=== PATIENT | male | born 1995 | race Caucasian/White ===

== ENCOUNTER 2024-02-25 11:53 | Emergency (ER) | payer SELFPAY ==
[~2024-02-25] VITALS: Ht 175.3 cm; Wt 75.0 kg
[2024-02-25 12:02] VITALS: BP 123/80; PULSE 74; RESP 18; TEMP 98.7; O2SAT 95
== END 2024-02-25 13:00 | disposition home or self-care (01) ==
LOC: ER 11:53
DX: R20.8 Other disturbances of skin sensation (principal); Z88.1 Allergy status to other antibiotic agents; Z90.89 Acquired absence of other organs
CPT/HCPCS: 99281